=== PATIENT | female | born 1985 | race Hispanic/Latino ===

== ENCOUNTER 2022-12-19 15:59 | Outpatient (CLI) | payer OTHER | END 2022-12-19 16:00 | disposition home or self-care (01) | LOC: CSHLAB 15:59 | PROVIDERS: ATTEND Obstetrics & Gynecology | DX: Z01.812 Encounter for preprocedural laboratory examination (principal); N80.03 Adenomyosis of the uterus | CPT/HCPCS: 84703; 85027; 86850; 86900; 86901 ==

== ENCOUNTER 2022-12-21 08:10 | Day surgery (SDC) | payer OTHER ==
[2022-12-19 16:19] VITALS: BMI 29.2
[2022-12-19 16:45] LABS: Hematocrit 37.8 % (34.9-44.5); Hemoglobin 12.3 g/dL (12.0-15.5); Mean Corpuscular HGB CONC 32.5 g/dL (32.0-36.0); Mean Corpuscular Hemoglobin 29.8 pg (27.0-33.0); Mean Corpuscular Volume 91.5 fl (81.6-98.3); Mean Platelet Volume 10.5 fl (7.4-10.4); Platelet Count 272 10x3/uL (150-450); RBC Distribution Width 13.4 % (11.5-14.5); Red Blood Cell (RBC) Count 4.13 10x6/uL (3.90-5.03); White Blood Cell (WBC) Count 7.3 10x3/uL (3.5-10.5)
[2022-12-19 17:05] LABS: BHCG - Serum Negative (NEGATIVE); Pregs Control Background? CLEAR/WHITE (CLR/WHITE); Pregs Control Bar Appear? YES (CONTROL BAR)
[2022-12-21] MEDS ORDERED: Gabapentin 300 MG CAP ONE (08:30)
[2022-12-21] MEDS ORDERED: Famotidine/PF 20 mg/2ml Vial ONE (08:30)
[2022-12-21] MEDS ORDERED: CeleCOXIB 100 MG CAP ONE (08:31)
[2022-12-21] MEDS ORDERED: Midazolam HCl 2 mg/2 ml Vial ONE (09:21)
[2022-12-21] MEDS ORDERED: PROPOFOL 20 ML ONE (09:33)
[2022-12-21] MEDS ORDERED: Fentanyl 250 MCG/5 ML VIAL ONE (09:33)
[2022-12-21] MEDS ORDERED: Rocuronium Bromide 10 MG/ML (10ML VIAL) ONE (09:34)
[2022-12-21] MEDS ORDERED: Ondansetron PF 4 MG/2 ML Vial ONE (09:34)
[2022-12-21] MEDS ORDERED: Lidocaine 1% PF 5 ML VIAL ONE (09:34)
[2022-12-21] MEDS ORDERED: Dexamethasone 4 mg/ml Vial ONE (09:34)
[2022-12-21] MEDS ORDERED: EPINEPHrine 1 MG/ML VIAL ONE (09:35)
[2022-12-21] MEDS ORDERED: Bupivacaine PF 0.5% 30 ML VIAL ONE (09:36)
[2022-12-21] MEDS ORDERED: CEFAZOLIN 2 GM VIAL ONE (09:36)
[2022-12-21] MEDS ORDERED: Glycopyrrolate 0.2 MG/ML 5 ML SYRINGE ONE (11:22)
[2022-12-21] MEDS ORDERED: HYDROcodone/Acetaminophen 5/325 mg Tablet ONE (12:27)
== END 2022-12-21 15:20 | disposition home or self-care (01) ==
LOC: CSHSDC 08:10
PROVIDERS: ATTEND Obstetrics & Gynecology
PROC: 0UT94ZZ Resection of Uterus, Percutaneous Endoscopic Approach (ICD-10-PCS; principal; 2022-12-21)
PROC: 0UB74ZZ Excision of Bilateral Fallopian Tubes, Percutaneous Endoscopic Approach (ICD-10-PCS; principal; 2022-12-21)
DX: D25.9 Leiomyoma of uterus, unspecified (principal); N80.03 Adenomyosis of the uterus; N92.0 Excessive and frequent menstruation with regular cycle
CPT/HCPCS: 84703; 85027; 86850; 86900; 86901; 88307; J0171; J1100; J2250; J2405; J2704; J3010; S0020; S0028